=== PATIENT | female | born 1965 | race Caucasian/White ===

== ENCOUNTER 2022-05-26 11:11 | Outpatient (CLI) | payer SELFPAY | END 2022-05-26 11:12 | disposition home or self-care (01) | LOC: NFLDREF 11:12 | PROVIDERS: PCP Family Medicine; Visit Provider Registered Nurse | DX: R30.0 Dysuria (principal); N39.0 Urinary tract infection, site not specified | CPT/HCPCS: 87086; 87186 ==

== ENCOUNTER 2022-05-30 16:02 | Emergency (ER) | payer OTHER, SELFPAY ==
[2022-05-30 16:05] VITALS: BP 137/81; PULSE 82; RESP 14; TEMP 36.8; O2SAT 97; BMI 28.3
--- NOTE | 2022-05-30 16:23 | CRLHL7_ITS ---
For Patients: As a result of the Cures Act, medical imaging exams and procedure reports are released immediately into your electronic medical record. You may view this report before your referring provider. If you have questions, please contact your health care provider. INDICATION: Fall. Left shoulder injury. TECHNIQUE: Shoulder radiographs 3 views COMPARISON: None FINDINGS: Bones: Alignment is normal. No acute fractures or aggressive osseous lesions seen. Joint spaces: The glenohumeral joint is unremarkable. Degenerative changes of left AC joint with inferior spurring. Soft tissues: The visualized hemithorax is unremarkable in appearance. No radiopaque foreign bodies are noted. IMPRESSION: 1. No acute osseous injuries are identified. Dictated by Noel Davila MD @ 05/30/2022 5:25:54 PM Dictated by: Noel Davila MD @ 05/30/2022 17:26:03 (Electronically Signed)
--- NOTE | 2022-05-30 16:26 | ED_ITS ---
HPI - Extremity Injury (Upper) General Date Seen: 05/30/22 Chief Complaint: Extremity Pain/Injury, Upper Stated Complaint: Left shoulder injury Time Seen by Provider: 05/30/22 16:05 Source: patient Mode of arrival: ambulatory Limitations: no limitations History of Present Illness HPI narrative: Patient is a 48-year-old female presents here for evaluation of a left shoulder injury that occurred approximately 45 minutes ago when she was [facility] She landed directly on her left shoulder, she complains of pain overlying her AC joint and shoulder. She has no problems moving her elbow, or her eye wrist. She denies any loss of consciousness any neck pain, or any other symptoms. She did not take any medications for this, did not ice it but was splinted by the skin care technician and brought here for further assessment. She tells me the skin care technician told her that she should get an x-ray. complaint: injury to: left Other injuries: none Hand dominance: Right Place: outdoors Context: fall Associated symptoms: denies other symptoms Treatments prior to arrival: splint Related Data Previous Rx's Medication Instructions Recorded nitrofurantoin 100 mg PO BID #10 caps 05/26/22 monohydrate/macrocrystals 100 mg capsule (Macrobid) Allergies Allergy/AdvReac Type Severity Reaction Status Date / Time amoxicillin Allergy Intermediate rash Verified 05/26/22 11:27 Penicillins Allergy Intermediate rash Verified 05/26/22 11:27 Review of Systems Status of ROS: Reports: 10 or more systems reviewed and unremarkable except as noted in History and below [facility] Medical History Cholelithiasis Surgical History History of cholecystectomy S/P section Family History Brother Alcoholism and drug addiction in family Other Dementia Shayne's disease Social History Smoking Status: Former smoker How often do you have a drink containing alcohol: monthly or less AUDIT-C Alcohol total score: 1 Non-prescribed substance use: denies use Exam Narrative: Exam Narrative: Patient is seen in room 4 she is in no apparent distress, speaking to me normally her neck motion is excellent in flexion extension lateral flexion rotation she is somewhat tender over the distally see no over shoulder, any sort of internal external rotation of her shoulder does cause some discomfort, she can not really abducted past 70? without pain. 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 Const: Vital Signs, click to edit/add: Vital Signs - 24 hr 05/30/22 16:05 Temperature 98.3 F Pulse Rate [Pulse Oximeter] 82 Respiratory Rate 14 Blood Pressure [Ri t Upper Arm] 137/81 Pulse Oximetry 97 Oxygen Delivery Me thod Room Air Course Vital Signs Vital signs: Initial Vital Signs Temperature 98.3 F 05/30/22 16:05 Temperature Source Temporal Artery Scan 05/30/22 16:05 Pulse Rate 82 05/30/22 16:05 Pulse Rhythm 05/30/22 16:05 Respiratory Rate 14 05/30/22 16:05 Blood Pressure 137/81 05/30/22 16:05 Blood Pressure Mean 99 05/30/22 16:05 Blood Pressure Position Sitting 05/30/22 16:05 Pulse Oximetry 97 05/30/22 16:05 Oxygen Delivery Method 05/30/22 16:05 Vital Signs Temperature 98.3 F 05/30/22 16:05 Pulse Rate 82 05/30/22 16:05 Respiratory Rate 14 05/30/22 16:05 Blood Pressure 137/81 05/30/22 16:05 Pulse Oximetry 97 05/30/22 16:05 Oxygen Delivery Method 05/30/22 16:05 Temperature 98.3 F 05/30/22 16:05 Pulse Rate 82 05/30/22 16:05 Respiratory Rate 14 05/30/22 16:05 Blood Pressure 137/81 05/30/22 16:05 Pulse Oximetry 97 05/30/22 16:05 Oxygen Delivery Method 05/30/22 16:05 MDM - Extremity Injury (Upper) MDM Narrative Medical decision making narrative: We will go ahead and get an x-ray, of her shoulder and AC joint. I will see her afterwards. Differential Diagnosis Differential diagnosis: Likely dislocation of shoulder and fracture of humerus Medical Records Attestation: I reviewed the patient's medical records. Imaging Data Left shoulder x-ray: My impression: Left shoulder x-ray three views is reviewed, transscapular view shows the acromion in the glenoid, no evidence of dislocation, AC joint appears normal no evidence of fracture of the humerus or glenoid. Impression negative x-ray, radiologic impression pending Discharge Plan Discharge Clinical Impression: Acute pain of left shoulder Patient Disposition: Home, Self-Care Condition: Stable Instructions: Shoulder Pain (ED), Arm Pain (ED), Shoulder Impingement Syndrome (ED) Additional Instructions: Shoulder x-rays are negative, I would ice the shoulder regularly every 30 minutes for the next few hours, ibuprofen 6-800 mg 3 times a day for 3 or 4 days and I would sling it for the next 48 hours. After that I would take it out of the sling, as he wants start moving it. If it is still not improving then I think follow-up with Orthopedics, would be appropriate, as I worry that you may have partially tore your rotator cuff, and not just a contusion of the shoulder. Your AC joint looks fine Prescriptions: No Action nitrofurantoin monohyd/m-cryst [Macrobid] 100 mg capsule 100 mg PO BID Qty: 10 0RF Rx Instructions: must administer with a meal/food Follow Up/Referrals: Everardo Lyon MD [Staff Physician] - Wilder Taylor DO [Primary Care Provider] - Stand Alone Forms: My[facility] Info Instructions
[2022-05-30] MEDS: IBUPROFEN 200 MG TABLET 600 MG PO (16:43)
[2022-05-30 17:02] VITALS: PULSE 81; O2SAT 97
--- NOTE | 2022-05-31 13:09 | ED.NURSE ---
Pt called wondering about her work note. 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 Would like faxed to her emplyer, Chris Norris at [phone]
== END 2022-05-30 17:03 | disposition home or self-care (01) ==
LOC: ED 16:43
PROVIDERS: Emergency Provider Family Medicine; PCP Family Medicine
DX: M25.512 Pain in left shoulder (principal)
CPT/HCPCS: 73030; 99283; 99284; A9270

== ENCOUNTER 2022-11-06 07:01 | Outpatient (CLI) | payer OTHER, SELFPAY | END 2022-11-06 07:02 | disposition home or self-care (01) | LOC: OP CLINIC 07:01 | PROVIDERS: PCP Family Medicine; Visit Provider Internal Medicine | DX: Z12.11 Encounter for screening for malignant neoplasm of colon (principal); K63.5 Polyp of colon; K57.30 Diverticulosis of large intestine without perforation or abscess without bleeding | CPT/HCPCS: 45380; 88305; J2250; J3010 ==

== ENCOUNTER 2023-02-22 07:30 | Outpatient (RCR) | payer OTHER, SELFPAY | END 2023-06-22 23:59 | disposition home or self-care (01) | PROVIDERS: PCP Family Medicine; Visit Provider Orthopaedic Surgery Sports Medicine | DX: M25.511 Pain in right shoulder (principal); Z51.89 Encounter for other specified aftercare | CPT/HCPCS: 97032; 97110; 97140; 97161; 97164 ==

== ENCOUNTER 2025-01-04 13:35 | Outpatient (CLI) | payer OTHER, SELFPAY | END 2025-01-04 13:36 | disposition home or self-care (01) | LOC: NFLDREF 01-10 08:52 | PROVIDERS: PCP Family Medicine; Referring Provider Family Medicine; Visit Provider Family Medicine | DX: R30.0 Dysuria (principal); N39.0 Urinary tract infection, site not specified; R35.0 Frequency of micturition | CPT/HCPCS: 87086 ==